=== PATIENT | male | born 2000 | race Caucasian/White ===

== ENCOUNTER 2020-05-14 10:00 | Outpatient (RCR) | payer OTHER | END 2020-05-19 07:49 | disposition home or self-care (01) | LOC: WSPT 10:00 | DX: M25.561 Pain in right knee (principal); Z98.890 Other specified postprocedural states ==

== ENCOUNTER 2021-05-26 14:46 | Outpatient (RCR) | payer OTHER | END 2021-06-07 09:04 | disposition still patient (30) | LOC: WSPT 14:46 | DX: M25.561 Pain in right knee (principal) ==

== ENCOUNTER 2021-08-04 14:15 | Outpatient (RCR) | payer OTHER | END 2021-09-11 | disposition home or self-care (01) | LOC: WSPT | DX: Z01.812 Encounter for preprocedural laboratory examination (principal); M25.561 Pain in right knee | CPT/HCPCS: G0283-GP ==